=== PATIENT | female | born 1995 | race Caucasian/White ===

== ENCOUNTER 2021-04-13 17:12 | Emergency (ER) | payer OTHER ==
[~2021-04-13] VITALS: Ht 154.9 cm; Wt 47.3 kg
[~2021-04-13 17:12] MED LIST: IBUPROFEN600 MG PO; PERCOCET 5-3251 TAB PO; PRENAVITE1 TAB PO
[2021-04-13 17:21] VITALS: Ht 154.9 cm; Wt 47.3 kg
[2021-04-13 18:03] LABS: BASOPHILS 0.2 % (0-2); EOSINOPHILS 0.9 % (0-7); HEMATOCRIT 38.6 % (36.0-48.0); HEMOGLOBIN 13.4 g/dL (12-16); IMMATURE GRANULOCYTES 0.2 % (0-5); LYMPHOCYTE ABS# 2.06 10x3/uL (1.18-3.74); MCH 31.8 pg (26.0-34.0); MCHC 34.7 g/dL (31.0-37.0); MCV 91.5 fL (80.0-100.0); MEAN PLATELET VOLUME 10.2 fL (7.4-10.4); MONOCYTES 7.4 % (2-11); NEUTROPHIL ABS# 3.03 10x3/uL (1.56-6.13); NEUTROPHILS 54.3 % (40-80); PLATELET COUNT 203 10x3/uL (130-400); RBC 4.22 10x6/uL (4.00-5.40); WBC 5.6 10x3/uL (4.8-10.8)
[2021-04-13 18:16] LABS: BILIRUBIN NEGATIVE (NEGATIVE); KETONE SMALL mg/dL (NEGATIVE); NITRITE NEGATIVE (NEGATIVE); UROBILINOGEN NORMAL mg/dL (< 2)
[2021-04-13 18:17] LABS: BACTERIA FEW HPF (NONE SEEN); HCG URINE NEGATIVE (NEGATIVE); SQUAMOUS EPITHELIAL OCC HPF (0-4); WHITE CELLS - URINE 0-5 HPF (0-4)
[2021-04-13 18:21] LABS: CALC OSMOLALITY 279 mosm/kg (275-300); CALCIUM 9.1 mg/dL (8.5-10.1); CARBON DIOXIDE 26.7 mmol/L (21.0-32.0); CHLORIDE - SERUM 103 mmol/L (98-107); CREATININE - SERUM 0.7 mg/dL (0.6-1.3); GLUCOSE 92 mg/dL (74-106); POTASSIUM - SERUM 3.5 mmol/L (3.5-5.1); SODIUM 140 mmol/L (136-145); UREA NITROGEN 15 mg/dL (7-18); eGFR NON AFRICAN AMERICAN > 90 mL/min (90-120)
[2021-04-13 18:29] LABS: ALBUMIN 3.9 g/dL (3.4-5.0); ALKALINE PHOSPHATASE 79 U/L (30-120); ALT (SGPT) 42 U/L (10-68); AMYLASE - SERUM 33 U/L (25-115); BILIRUBIN - TOTAL 1.06 mg/dL (0.2-1.3); LIPASE 95 U/L (73-393); PROTEIN - SERUM 7.5 g/dL (6.4-8.2)
[2021-04-13 18:39] LABS: TROPONIN-I < 0.017 ng/mL (0.000-0.060)
[2021-04-13] MEDS ORDERED: PROTONIX40 MG PO (19:53)
[2021-04-13 20:13] LABS: HELICOBACTER PYLORI IGG NEGATIVE (NEGATIVE)
[2021-04-13 20:22] VITALS: BP 107/73
== END 2021-04-13 20:22 | disposition home or self-care (01) ==
LOC: D.ER 17:12
PROVIDERS: Emergency Medicine; Family Medicine
DX: K27.9 Peptic ulcer, site unspecified, unspecified as acute or chronic, without hemorrhage or perforation (principal); R10.13 Epigastric pain; R11.2 Nausea with vomiting, unspecified